=== PATIENT | male | born 1950 | race Caucasian/White ===

== ENCOUNTER → 2022-03-08 14:52 | Outpatient (CLI) | payer MEDICARE, OTHER, SELFPAY ==
--- NOTE | 2022-03-08 14:54 | DI.MRI.S_ITS ---
PROCEDURE: MR LUMBAR SPINE WO CON INDICATIONS: low back pain with radicular symptoms TECHNIQUE: Noncontrast sagittal T1 spin echo and T2 fast echo, sagittal STIR, and T2 fast spin echo through the lumbar spine. In cases with scoliosis, additional coronal T2 fast spin echo may be performed. COMPARISON: [facility], MR, L-SPINE WITHOUT CONTRAST, 11/27/2011, 12:29. FINDINGS: Image quality: Excellent. Alignment and Curvature: Degenerative retrolisthesis of L5 on S1 measuring 6 mm. Bone Marrow: Marrow is of normal overall signal. No acute vertebral body compression fractures. Spinal Cord: Conus medullaris terminates at the L1 level. Visualized cord demonstrates normal signal and size. Paraspinous Soft Tissues: No paravertebral masses. T12-L1: No canal stenosis or foraminal stenosis. L1-L2: Bilateral facet hypertrophy. Mild right foraminal stenosis. Moderate left foraminal stenosis with flattening deformity on the exiting left L1 nerve root. L2-L3: Disc bulge. Facet hypertrophy. Moderate canal stenosis. Mild bilateral foraminal stenosis. L3-L4: Disc bulge. Short pedicles. Prominent bilateral facet and ligament hypertrophy. Severe canal stenosis. Psyd-on-bbhvkiie bilateral foraminal stenosis. L4-L5: Disc bulge. Short pedicles. Marked facet hypertrophy. Marked canal stenosis. Moderate bilateral foraminal narrowing with flattening deformity on the exiting bilateral L4 nerve roots. L5-S1: Retrolisthesis of L5 on S1. Facet hypertrophy. Mild canal stenosis. Moderate bilateral foraminal narrowing with flattening deformity on the exiting bilateral L5 nerve roots. IMPRESSION: 1. Patient has underlying short pedicles and multilevel facet hypertrophy. 2. Canal stenosis is moderate at L2-L3, severe at L3-L4, marked at L4-L5, and mild at L5-S1. 3. Multilevel foraminal narrowing as described above. Dictated by: Juan Carlos Landry M.D. on 03/08/2022 at 17:02 Approved by: Juan Carlos Landry M.D. on 03/08/2022 at 17:06
== END ==
PROVIDERS: PCP Family Medicine; Referring Provider Family Medicine; Visit Provider Family Medicine
DX: M48.061 Spinal stenosis, lumbar region without neurogenic claudication (principal); M54.16 Radiculopathy, lumbar region; M54.50 Low back pain, unspecified; M21.371 Foot drop, right foot; G89.29 Other chronic pain
CPT/HCPCS: 72148

== ENCOUNTER → 2022-03-15 09:21 | Outpatient (CLI) | payer MEDICARE, OTHER, SELFPAY ==
[2022-03-15 20:53] LABS: BUN Creatinine Ratio 18.8 (6-22); Blood Urea Nitrogen 18 mg/dL (9-20); Calcium 9.2 mg/dL (8.4-10.2); Carbon Dioxide 29 mmol/L (22-32); Chloride 100 mmol/L (98-107); Cholesterol 244 mg/dL (140-199); Estimated Glomerular Filt Rate > 60 mL/min (>60); Glucose 91 mg/dL (80-110); HDL Cholesterol 32 mg/dL (40-60); HEMOLYSIS 22 (0-50); LDL Cholesterol Calculated 169 mg/dL (<100); Potassium 4.4 mmol/L (3.4-5.1); Sodium 138 mmol/L (137-145); Triglycerides 214 mg/dL (35-150)
== END ==
PROVIDERS: PCP Family Medicine; Visit Provider Family Medicine
DX: Z13.1 Encounter for screening for diabetes mellitus (principal); Z13.220 Encounter for screening for lipoid disorders; Z79.1 Long term (current) use of non-steroidal anti-inflammatories (NSAID)
CPT/HCPCS: 80048; 80061

== ENCOUNTER → 2022-04-21 13:34 | Outpatient (CLI) | payer MEDICARE, OTHER, SELFPAY | PROVIDERS: PCP Family Medicine; Visit Provider Physician Assistant | DX: L08.9 Local infection of the skin and subcutaneous tissue, unspecified (principal) | CPT/HCPCS: 87070; 87205 ==

== ENCOUNTER → 2022-05-29 12:59 | Outpatient (CLI) | payer MEDICARE, OTHER, SELFPAY ==
[2022-05-29 20:35] LABS: Cholesterol 135 mg/dL (140-199); HDL Cholesterol 41 mg/dL (40-60); LDL Cholesterol Calculated 82 mg/dL (<100); Triglycerides 59 mg/dL (35-150)
== END ==
PROVIDERS: PCP Family Medicine; Visit Provider Family Medicine
DX: E78.2 Mixed hyperlipidemia (principal)
CPT/HCPCS: 80061

== ENCOUNTER → 2022-05-30 12:51 | Outpatient (CLI) | payer MEDICARE, OTHER, SELFPAY ==
--- NOTE | 2022-05-30 12:54 | DI.RAD.S_ITS ---
PROCEDURE: XR LUMBAR SPINE MIN 4V INDICATIONS: LOW BACK PAIN TECHNIQUE: 5 views of the lumbar spine were acquired, including bilateral oblique views. COMPARISON: [facility], MR, MR LUMBAR SPINE WO CON, 03/08/2022, 15:09. FINDINGS: Bones: 5 nonrib-bearing vertebrae are present. There is trace retrolisthesis of L2 on L3, L3 on L4. There is severe disc and foraminal narrowing most notable at L4-5 and L5-S1, moderate L1-2, L2-3 and L3-4.. Small scattered anterior osteophytes are present most notable at L1 and L3. No vertebral body compression fractures. No suspicious bony lesions. Soft tissues: Overlying bowel gas pattern is normal. No suspicious soft tissue calcifications. Oblique images: No pars defects. IMPRESSION: Multilevel disc and foraminal narrowing most severe at L5-S1. Dictated by: Sheeba Hammonds M.D. on 05/30/2022 at 16:24 Approved by: Sheeba Hammonds M.D. on 05/30/2022 at 16:25
== END ==
PROVIDERS: PCP Family Medicine; Referring Provider Anesthesiology; Visit Provider Anesthesiology
DX: M47.26 Other spondylosis with radiculopathy, lumbar region (principal); M48.07 Spinal stenosis, lumbosacral region; M48.061 Spinal stenosis, lumbar region without neurogenic claudication
CPT/HCPCS: 72110; 99214

== ENCOUNTER 2022-06-08 15:11 | Outpatient (CLI) | payer MEDICARE, OTHER, SELFPAY ==
--- NOTE | 2022-06-08 15:15 | DI.RAD.S_ITS ---
PROCEDURE: PAIN L/S FACET INJ/BLK 1ST SANTA COMPARISON: [facility], CR, XR LUMBAR SPINE MIN 4V, 05/30/2022, 14:01. [facility], MR, MR LUMBAR SPINE WO CON, 03/08/2022, 15:09. INDICATIONS: SPINAL STENOSIS FINDINGS: Fluoroscopic spot filming was performed to verify placement of spinal needles on both sides at the L3, L4, and L5 levels, as labeled on the films. Appropriate location of the needle tips was confirmed by injection of iodinated contrast. IMPRESSION: Intraprocedural examination demonstrating appropriate positions of the needles. Dictated by: Damien Cantu M.D. on 06/08/2022 at 15:23 Approved by: Damien Cantu M.D. on 06/08/2022 at 15:23
[2022-06-08 15:20] VITALS: BP 168/77; PULSE 71; RESP 16; TEMP 36.7; O2SAT 100
[2022-06-08 15:33] VITALS: BP 153/76; PULSE 69; RESP 12; O2SAT 98
[2022-06-08] MEDS: IOPAMIDOL 15 ML VIAL 3 ML INJ (15:35)
[2022-06-08] MEDS: BUPIVACAINE 0.5% MDV 5 ML SUBCUT (15:36)
[2022-06-08 15:38] VITALS: BP 139/73; PULSE 73; RESP 15; O2SAT 98
[2022-06-08 15:43] VITALS: BP 137/80; PULSE 75; RESP 20; O2SAT 97
[2022-06-08 15:50] VITALS: BP 158/67; PULSE 66; RESP 18; O2SAT 100
--- NOTE | 2022-06-08 15:58 | P.PCN_ITS ---
Date/Time/Diagnoses Date of procedure: 06/08/22 Time of procedure: 15:30 Procedure Notes Physician: Austyn Jefferson Total Fluoroscopy time (seconds): 20 Total sedation minutes: 0 Procedure in detail & Post-procedure care: Bilateral L3,4,5 Lumbar Medial Branch Blocks Indications: Rito is referred by Dr. Weeks for treatment of lumbar spondylosis with low back pain. Preoperative diagnosis: Bilateral lumbar spondylosis Postoperative diagnosis: Same Pre-procedure History: Patient demonstrates today moderate to severe non- radicular back pain without neurologic deficit aggravated by hyperextension yes Back pain greater than leg pain? yes Patient today has tenderness over the suspected joint(s) yes History of post-traumatic injury? no Hypertrophic arthropathy yes Back pain associated with suspected motion segment instability, hypermobility or pseudoarthrosis no Pre-testing pain score (VAS): 4/10 Focused Examination: Ax3 Mood and affect are normal Vital Signs: VSS Consent: Following review of allergies and potential side effects/complications, including, but not necessarily limited to, infection, allergic reaction, local tissue breakdown, stroke, temporary or permanent nerve injury, paralysis, and possible , the patient indicated that they understood and agreed to proceed.? An informed consent document was signed by the patient, witnessed by a nurse and placed in the patient's chart.? Additionally, other treatment options including medications and physical therapy were reviewed with the patient. All questions were answered. Site was then marked. Anesthesia: Local Position: Prone Monitoring: NIBP, Pulse oximetry, 3 lead EKG Needle used: 22G 3.5 inch spinal needle Contrast: Isovue 300M Injectate: 0.5% Bupivacaine 1 mL per site Procedure: The patient was brought into the procedure room and positioned into the prone position. Skin was prepped with a Chloraprep solution, allowed to air dry, and then draped in sterile fashion.? The right L3,4,5 DR facet joints were visually identified with fluoroscopy. Lidocaine 1% was used to anesthetize the skin over each target destination with a 25ga needle. A 22 ga, 3.5 inch spinal needle was advanced to the location of the medial branch at the junction of the superior articular process and the transverse process using intermittent fluoroscopy in the oblique view. Isovue 300M contrast 0.2ml was injected at each level outlining the medial borders for each level and the base of the SAP of the sacrum in the AP and lateral views. There was no evidence of vascular or intrathecal uptake. The above injectate was slowly injected at each target destination. The above procedure was then repeated for the left L3,4,5 DR facet joints. At the end of the procedure the needles were withdrawn and Band-Aids were applied for a dressing. Post Procedure: Patient was taken to the recovery and monitored. The patient was provided a Pain Log to continue to record the patient's response to the target- specific procedure prior to the patient's follow-up visit with the referring physician. Patient was stable upon discharge. Detailed post procedure instructions were provided. Patient was asked to call in the event of worsening pain, fever, weakness, numbness or bladder or bowel incontinence. Postoperatively, today patient demonstrates the following changes with hyperextension and with tenderness over the suspected joint(s). Provacative testing using the Bernal's facet loading test Right side Left side Directly before the block ?VAS (0-10) = 4/10 VAS (0-10) = 4/10 5 minutes after the block VAS (0-10) = 0/10 VAS (0-10) = 0/10 Percentage relief obtained with this diagnostic block 100% 100% Any improved physical functioning directly after the blocks? ROM, Walking Based on the medial branches blocked today, if the patient meets insurance criteria for radiofrequency, the treatment should result in the denervation of the L4-5 and L5-S1 facet joint nerves. We would expect to denervate a total of 4 facets during the radiofrequency ablation.
== END 2022-06-08 15:57 | disposition home or self-care (01) ==
LOC: RAD 15:12
PROVIDERS: PCP Family Medicine; Referring Provider Anesthesiology; Visit Provider Anesthesiology
DX: M47.816 Spondylosis without myelopathy or radiculopathy, lumbar region (principal)
CPT/HCPCS: 64493; 64494

== ENCOUNTER 2022-08-08 12:24 | Outpatient (CLI) | payer MEDICARE, OTHER, SELFPAY ==
--- NOTE | 2022-08-08 12:25 | DI.RAD.S_ITS ---
PROCEDURE: PAIN L/S FACET INJ/BLK 1ST SANTA COMPARISON: [facility], , PAIN L/S FACET INJ/BLK 1ST SANTA, 06/08/2022, 16:33. INDICATIONS: SPONDYLOSIS FINDINGS: Low resolution intraoperative spot films were obtained during bilateral medial branch blocks at L4, L5 and S1 IMPRESSION: Fluoroscopic guidance Approved by: Sandro Vazquez M.D. on 08/08/2022 at 16:41
[2022-08-08 12:35] VITALS: BP 133/80; PULSE 58; RESP 20; TEMP 36.4; O2SAT 98
[2022-08-08 12:55] VITALS: BP 149/76; PULSE 67; RESP 16; O2SAT 97
[2022-08-08] MEDS: LIDOCAINE 2% INJ SDV 5ML 5 ML INJ (12:58)
[2022-08-08] MEDS: IOPAMIDOL 15 ML VIAL 3 ML INJ (12:58)
[2022-08-08 13:00] VITALS: BP 146/72; PULSE 66; RESP 16; O2SAT 97
[2022-08-08 13:05] VITALS: BP 138/71; PULSE 69; RESP 16; O2SAT 97
[2022-08-08 13:10] VITALS: BP 155/68; PULSE 64; RESP 18; O2SAT 99
--- NOTE | 2022-08-08 14:50 | P.PCN_ITS ---
Date/Time/Diagnoses Date of procedure: 08/08/22 Time of procedure: 13:00 Procedure Notes Physician: Austyn Jefferson Total Fluoroscopy time (seconds): 13 Total sedation minutes: 0 Procedure in detail & Post-procedure care: Bilateral Lumbar Medial Branch Blocks Indications: Rito presents for treatment of lumbar spondylosis with low back p ain. Preoperative diagnosis: Bilateral lumbar spondylosis Postoperative diagnosis: Same Pre-procedure History: Patient demonstrates today moderate to severe non- radicular back pain without neurologic deficit aggravated by hyperextension yes Back pain greater than leg pain? yes Patient today has tenderness over the suspected joint(s) yes History of post-traumatic injury? no Hypertrophic arthropathy yes Back pain associated with suspected motion segment instability, hypermobility or pseudoarthrosis no Pre-testing pain score (VAS): 6/10 Focused Examination: Ax3 Mood and affect are normal Vital Signs: VSS ASA: 2 Consent: Following review of allergies and potential side effects/complications, including, but not necessarily limited to, infection, allergic reaction, local tissue breakdown, stroke, temporary or permanent nerve injury, paralysis, and possible , the patient indicated that they understood and agreed to proceed.? An informed consent document was signed by the patient, witnessed by a nurse and placed in the patient's chart.? Additionally, other treatment options including medications and physical therapy were reviewed with the patient. All questions were answered. Site was then marked. Anesthesia: Local Position: Prone Monitoring: NIBP, Pulse oximetry, 3 lead EKG Needle used: 25G 3.5 inch spinal needle Contrast: Isovue 300M Injectate: 2% lidocaine 1 mL per site Procedure: The patient was brought into the procedure room and positioned into the prone position. Skin was prepped with a Chloraprep solution, allowed to air dry, and then draped in sterile fashion.? The right L4-5 and L5-S1 facet joints were visually identified with fluoroscopy. Lidocaine 1% was used to anesthetize the skin over each target destination with a 25ga needle. A 25 ga, 3.5 inch spinal needle was advanced to the location of the medial branch at the junction of the superior articular process and the transverse process at L3,4,5 using intermittent fluoroscopy in the AP view. Isovue 300M contrast 0.2ml was injected at each level outlining the medial borders for each level and the base of the SAP of the sacrum in the AP and lateral views. There was no evidence of vascular or intrathecal uptake. The above injectate was slowly injected at each target destination. The left L4-5 and L5-S1 facet joints were visually identified with fluoroscopy. Lidocaine 1% was used to anesthetize the skin over each target destination with a 25ga needle. A 22 ga, 3.5 inch spinal needle was advanced to the location of the medial branch at the junction of the superior articular process and the transverse process at L3,4,5 using intermittent fluoroscopy in the AP view. Isovue 300M contrast 0.2ml was injected at each level outlining the medial borders for each level and the base of the SAP of the sacrum in the AP and lateral views. There was no evidence of vascular or intrathecal uptake. The above injectate was slowly injected at each target destination. At the end of the procedure the needles were withdrawn and Band-Aids were applied for a dressing. At the end of the procedure the needles were withdrawn and Band-Aids were applied for a dressing. Post Procedure: Patient was taken to the recovery and monitored. The patient was provided a Pain Log to continue to record the patient's response to the target- specific procedure prior to the patient's follow-up visit with the referring physician. Patient was stable upon discharge. Detailed post procedure instructions were provided. Patient was asked to call in the event of worsening pain, fever, weakness, numbness or bladder or bowel incontinence. Postoperatively, today patient demonstrates the following changes with hyperextension and with tenderness over the suspected joint(s). Provacative testing using the Bernal's facet loading test Right side Left side Directly before the block ?VAS (0-10) = 6/10 VAS (0-10) = 6/10 5 minutes after the block VAS (0-10) = 2/10 VAS (0-10) = 2/10 Percentage relief obtained with this diagnostic block 67 % 67 % Any improved physical functioning directly after the blocks? Range of motion Based on the medial branches blocked today, if the patient meets insurance criteria for radiofrequency, the treatment should result in the denervation of the bilateral L4-5 and L5-S1 facet joint nerves. We would expect to denervate a total of 4 facets during the radiofrequency ablation.
== END 2022-08-08 13:20 | disposition home or self-care (01) ==
LOC: RAD 12:25
PROVIDERS: PCP Family Medicine; Referring Provider Anesthesiology; Visit Provider Anesthesiology
DX: M47.816 Spondylosis without myelopathy or radiculopathy, lumbar region (principal)
CPT/HCPCS: 64493; 64494

== ENCOUNTER 2022-09-13 15:35 | Outpatient (CLI) | payer MEDICARE, OTHER, SELFPAY ==
[2022-09-13] VITALS (12 sets, daily range): BP systolic 152–190; BP diastolic 81–96; PULSE 65–78; RESP 14–23; TEMP 36.1; O2SAT 97–99
--- NOTE | 2022-09-13 15:36 | DI.RAD.S_ITS ---
PROCEDURE: PAIN L/S MED/LAT N RFA BILAT INDICATIONS: SPONDYLOSIS COMPARISON: None. FINDINGS: Fluoroscopic spot filming was performed to verify placement of spinal needles at the bilateral L3, L4, and L5 level(s), as labeled on the films. Appropriate location(s) of the needle tip(s) was confirmed by injection of iodinated contrast. IMPRESSION: Fluoroscopy used for needle localization at the aforementioned levels. Dictated by: Nell Paredes M.D. on 09/13/2022 at 17:33 Approved by: Nell Paredes M.D. on 09/13/2022 at 17:34
[2022-09-13] MEDS: DEXAMETHASONE 10 MG/ML VIAL 20 MG INJ (15:57)
[2022-09-13] MEDS: LIDOCAINE 2% INJ MDV 20ML 20 ML INJ (15:57)
[2022-09-13] MEDS: BUPIVACAINE 0.5% (PF) 10 ML VIAL 5 ML INJ (15:58)
--- NOTE | 2022-09-13 16:47 | P.PCN_ITS ---
Date/Time/Diagnoses Date of procedure: 09/13/22 Time of procedure: 15:30 Procedure Notes Physician: Austyn Jefferson Total Fluoroscopy time (seconds): 17 Total sedation minutes: 0 Procedure in detail & Post-procedure care: Bilateral L3, 4, 5 Lumbar Medial Branch Radio Frequency Ablation Indications: Rito presents for treatment of lumbar spondylosis with low back pain. Preoperative diagnosis: Bilateral lumbar spondylosis Postoperative diagnosis: Same Pre-procedure History: Patient demonstrates today moderate to severe non-radicular low back pain without neurologic deficit aggravated by hyperextension yes Back pain greater than leg pain? yes Patient today has tenderness over the suspected joint(s) yes History of post-traumatic injury? no Hypertrophic arthropathy yes Back pain associated with suspected motion segment instability, hypermobility or pseudoarthrosis no Focused Examination: Ax3 Mood and affect are normal Vital Signs: VSS Consent: Following review of allergies and potential side effects/complications, including, but not necessarily limited to, infection, allergic reaction, local tissue breakdown, stroke, temporary or permanent nerve injury, paralysis, and possible , the patient indicated that they understood and agreed to proceed.? An informed consent document was signed by the patient, witnessed by a nurse and placed in the patient's chart.? Additionally, other treatment options including medications and physical therapy were reviewed with the patient. All questions were answered. Site was then marked. Position: Prone Monitoring: NIBP, Pulse oximetry, 3 lead EKG Needle used: 18 guage, 100 mm, 10 mm active tip Anesthesia: Local Procedure: The patient was brought into the procedure room and positioned into the prone position. Skin was prepped with a Chloraprep solution, allowed to air dry, and then draped in sterile fashion.? The right L4-5 and L5-S1 facet joints were visually identified with fluoroscopy. Lidocaine 1% was used to anesthetize the skin over each target destination with a 25ga needle. An 18 ga, 100 mm RFA needle with a 10 mm active tip was advanced to the location of the medial branch at the junction of the superior articular process and the transverse process at L4,5 using intermittent fluoroscopy in the oblique view with caudal tilt. AP and lateral radiographs were taken to confirm proper needle placement. No paresthesias were noted. The stylet was removed and the radiofrequency probe was inserted through the cannula. Each level was individually tested. The impedance was between 300 and 800 ohms at all levels.? Motor stimulation up to 2V elicited multifidus twitching in the lumbar spine. There was no motor stimulation in the lower extremities. After negative aspiration, 1ml of 2% lidocaine was injected at each of the levels and radiofrequency denervation carried out using 80 degrees Celsius for 90 seconds. The needles were then rotated 90 degrees and a second ablation was performed at 80 degrees Celsius for 90 seconds. After ablation, a mixture of 10 mg dexamethasone with 0.25% bupivacaine 5 mL was injected in equal amounts among the sites (1 mL per site). Next, the left L4-5 and L5-S1 facet joints were visually identified with fluoroscopy. Lidocaine 1% was used to anesthetize the skin over each target d estination with a 25ga needle. An 18 ga, 100 mm RFA needle with a 10 mm active tip was advanced to the location of the medial branch at the junction of the superior articular process and the transverse process at L4,5 using intermittent fluoroscopy in the oblique view with caudal tilt. AP and lateral radiographs were taken to confirm proper needle placement. No paresthesias were noted. The stylet was removed and the radiofrequency probe was inserted through the cannula. Each level was individually tested. The impedance was between 300 and 800 ohms at all levels.? Motor stimulation up to 2V elicited multifidus twitching in the lumbar spine. There was no motor stimulation in the lower extremities. After negative aspiration, 1ml of 2% lidocaine was injected at each of the levels and radiofrequency denervation carried out using 80 degrees Celsius for 90 seconds. The needles were then rotated 90 degrees and a second ablation was performed at 80 degrees Celsius for 90 seconds. After ablation, a mixture of 10 mg dexamethasone with 0.25% bupivacaine 5 mL was injected in equal amounts among the sites (1 mL per site). At the end of the procedure the needles were withdrawn and Band-Aids were applied for a dressing. This procedure is expected to denervate the bilateral L4-5 and L5-S1 facet joints. Post Procedure: Patient was taken to the recovery and monitored. The patient was provided a Pain Log to continue to record the patient's response to the target- specific procedure prior to the patient's follow-up visit with the referring physician. Patient was stable upon discharge. Detailed post procedure instructions were provided. Patient was asked to call in the event of worsening pain, fever, weakness, numbness or bladder or bowel incontinence. Complications: None
== END 2022-09-13 16:45 | disposition home or self-care (01) ==
PROVIDERS: PCP Family Medicine; Referring Provider Anesthesiology; Visit Provider Anesthesiology
DX: M47.816 Spondylosis without myelopathy or radiculopathy, lumbar region (principal)
CPT/HCPCS: 64635; 64636; J1100

== ENCOUNTER 2023-01-03 15:21 | Outpatient (CLI) | payer MEDICARE, OTHER, SELFPAY ==
--- NOTE | 2023-01-03 15:24 | DI.RAD.S_ITS ---
PROCEDURE: PAIN L INTERLAMINAR/CAUDAL INJ INDICATIONS: RADICULOPATHY COMPARISON: [facility], XA, PAIN L/S MED/LAT N RFA BILAT, 09/13/2022, 15:57. FINDINGS: Fluoroscopic spot filming was performed to verify placement of a spinal needle at the L4-L5 level, as labeled on the films. Appropriate location of the needle tip was confirmed by injection of iodinated contrast. IMPRESSION: Intraprocedural examination within normal limits. Dictated by: Damien Cantu M.D. on 01/03/2023 at 17:41 Approved by: Damien Cantu M.D. on 01/03/2023 at 17:42
[2023-01-03 15:30] VITALS: BP 160/77; PULSE 66; RESP 15; TEMP 36.4; O2SAT 99
[2023-01-03 16:00] VITALS: BP 181/83; PULSE 69; RESP 14; O2SAT 99
[2023-01-03] MEDS: IOPAMIDOL 15 ML VIAL 3 ML INJ (16:02)
[2023-01-03] MEDS: DEXAMETHASONE 10 MG/ML VIAL INJ (16:02)
[2023-01-03 16:05] VITALS: BP 165/86; PULSE 68; RESP 7; O2SAT 100
[2023-01-03 16:08] VITALS: BP 146/79; PULSE 66; RESP 8; O2SAT 99
[2023-01-03 16:10] VITALS: BP 156/74; PULSE 73; RESP 15; O2SAT 99
--- NOTE | 2023-01-03 16:24 | P.PCN_ITS ---
Date/Time/Diagnoses Date of procedure: 01/03/23 Time of procedure: 16:00 Procedure Notes Physician: Austyn Jefferson Total Fluoroscopy time (seconds): 15 Total sedation minutes: 0 Procedure in detail & Post-procedure care: L4-5 Interlaminar Epidural Steroid Injection Indications: Petar is presenting for treatment of lumbar radiculopathy with low back and leg pain. Preoperative diagnosis: Lumbar radiculopathy Postoperative diagnosis: Same Focused Examination: Ax3 Mood and affect are normal Vital Signs: VSS Consent: Following review of allergies and potential side effects/complications, including, but not necessarily limited to, infection, allergic reaction, local tissue breakdown, stroke, temporary or permanent nerve injury, paralysis, and possible , the patient indicated that they understood and agreed to proceed.? An informed consent document was signed by the patient, witnessed by a nurse and placed in the patient's chart.? Additionally, other treatment options including medications and physical therapy were reviewed with the patient. All questions were answered. Site was then marked. Anesthesia: Local Position: Prone Monitoring: NIBP, Pulse oximetry, 3 lead EKG Needle used: 18 G 3.5? Tuohy Contrast: Isovue 300M Injectate: Dexamethasone 10 mg with 1% lidocaine 2 mL Technique: The skin was prepped with chloraprep and then draped in a sterile fashion. Time out was performed as per protocol. Oxygen applied via NC. Skin and subcutaneous structures of the needle entry site was then infiltrated with 3 mL of lidocaine 1%. Under AP, lateral and contralateral oblique fluoroscopic control, the Tuohy needle was guided into the L4-5 epidural space. The space was accessed with loss of resistance technique. Isovue 300M was then injected and the spread was consistent with the epidural space. There was no evidence for intravascular or intrathecal uptake. After negative aspiration, the above- mentioned injectate was then slowly administered and the needle withdrawn. The patient expressed no unusual discomfort or paresthesias during the injection. Band-Aids applied to injection sites. EBL: less than 1 ml Complications: None Post Procedure: Patient was taken to the recovery and monitored. The patient was provided a Pain Log to continue to record the patient's response to the target- specific procedure prior to the patient's follow-up visit with the referring physician. Patient was stable upon discharge. Detailed post procedure instructions were provided. Patient was asked to call in the event of worsening pain, fever, weakness, numbness or bladder or bowel incontinence.
== END 2023-01-03 16:20 | disposition home or self-care (01) ==
PROVIDERS: PCP Family Medicine; Referring Provider Anesthesiology; Visit Provider Anesthesiology
DX: M54.16 Radiculopathy, lumbar region (principal)
CPT/HCPCS: 62323; J1100

== ENCOUNTER → 2023-05-03 11:32 | Outpatient (CLI) | payer MEDICARE, OTHER, SELFPAY ==
--- NOTE | 2023-05-03 11:34 | DI.MRI.S_ITS ---
PROCEDURE: MR LUMBAR SPINE WO CON INDICATIONS: LUMBAR RADICULOPATHY TECHNIQUE: Noncontrast sagittal T1 spin echo and T2 fast echo, sagittal STIR, and T2 fast spin echo through the lumbar spine. In cases with scoliosis, additional coronal T2 fast spin echo may be performed. COMPARISON: [facility], MR, MR LUMBAR SPINE WO CON, 03/08/2022, 15:09. FINDINGS: Image quality: Diagnostic. Alignment and Curvature: Stable bony alignment with mild grade 1 retrolisthesis of L5 on S1 secondary to degenerative changes. This measures approximately 5-6 mm. Bone Marrow: Marrow is of normal overall signal. No acute vertebral body compression fractures. Redemonstration of congenital short pedicles. Spinal Cord: Conus medullaris terminates at the L1 level. Visualized cord demonstrates normal signal and size. Paraspinous Soft Tissues: No paravertebral masses. T12-L1: No significant neuroforaminal or spinal canal stenosis. L1-L2: Moderate bilateral facet arthropathy. Ligamentum flavum hypertrophy. Small symmetric disc bulge. No significant spinal canal stenosis. Moderate-severe left and moderate right bilateral neuroforaminal stenosis. L2-L3: Degenerative endplate changes. Mild disc space loss. Disc desiccation. Moderate symmetric disc bulge. Moderate bilateral facet arthropathy. Ligamentum flavum hypertrophy. Moderate spinal canal stenosis. Mild bilateral neuroforaminal stenosis. L3-L4: Disc desiccation. Degenerative endplate changes. Moderate symmetric disc bulge. Moderate bilateral facet arthropathy. Ligamentum flavum hypertrophy. Severe spinal canal stenosis. Moderate bilateral neuroforaminal stenosis. L4-L5: Degenerative endplate changes. Disc space loss. Moderate-severe bilateral facet arthropathy. Ligamentum flavum hypertrophy. Slightly eccentric to the right diffuse disc bulge. Moderate left and moderate-severe right bilateral neuroforaminal stenosis. Severe spinal canal stenosis. L5-S1: Degenerative endplate changes. Disc height loss. Disc desiccation. Moderate bilateral facet arthropathy. Diffuse disc bulge. Moderate bilateral neuroforaminal stenosis. Mild spinal canal stenosis. IMPRESSION: 1. No acute abnormalities identified in the lumbar spine. 2. Mild interval progression of multilevel, multifactorial lumbar spondylosis as detailed above by vertebral body level. Findings are most severe at L3-4 and L4-5. Dictated by: Ted Bravo M.D. on 05/03/2023 at 16:51 Approved by: Ted Bravo M.D. on 05/03/2023 at 17:01
[2023-05-03 14:10] LABS: Add Manual Diff / Slide Review NO; Basophils Absolute Auto 100 /uL (0-100); Basophils Percent Auto 0.9 % (0-2); Eosinophils Absolute Auto 100 /uL (0-450); Eosinophils Percent Auto 1.8 % (2-4); Hematocrit 43.6 % (41-53); Hemoglobin 15.1 g/dL (13.5-17.5); Lymphocytes Absolute Auto 1800 /uL (1100-4500); Lymphocytes Percent Auto 24.9 % (25-40); Mean Corpuscular HGB Conc 34.6 % (30-36); Mean Corpuscular Hemoglobin 31.1 PG (26-34); Mean Corpuscular Volume 89.9 fL (80-100); Monocytes Absolute Auto 500 /uL (0-900); Monocytes Percent Auto 7.4 % (3-14); Neutrophils Absolute Auto 4700 /uL (1500-7000); Platelet Count 181 X10^3/uL (150-400); Red Blood Cell Count 4.85 X10^6/uL (4.5-5.9); White Blood Cell Count 7.2 X10^3/uL (4.5-11.0)
[2023-05-03 14:21] LABS: Prothrombin Time 11.3 SECONDS (9.4-12.5)
[2023-05-03 14:25] LABS: PTT Partial Thromboplastin Tim 28 SECONDS (25.1-36.5)
[2023-05-03 14:27] LABS: Hemoglobin A1C% w Est Avg Glu 5.6 % (4.0-6.0)
[2023-05-03 14:28] LABS: BUN Creatinine Ratio 18.4 (6-22); Blood Urea Nitrogen 16 mg/dL (9-20); Calcium 9.7 mg/dL (8.4-10.2); Carbon Dioxide 28 mmol/L (22-32); Chloride 105 mmol/L (98-107); Estimated Glomerular Filt Rate > 60 mL/min (>60); Glucose 96 mg/dL (80-110); HEMOLYSIS < 15 (0-50); Potassium 4.3 mmol/L (3.4-5.1); Sodium 140 mmol/L (137-145)
== END ==
PROVIDERS: PCP Family Medicine; Referring Provider Orthopaedic Surgery; Visit Provider Orthopaedic Surgery
DX: M51.16 Intervertebral disc disorders with radiculopathy, lumbar region (principal); Z01.818 Encounter for other preprocedural examination; M48.062 Spinal stenosis, lumbar region with neurogenic claudication; M47.26 Other spondylosis with radiculopathy, lumbar region
CPT/HCPCS: 36415; 72148; 80048; 83036; 85025; 85610; 85730; 93005

== ENCOUNTER → 2023-05-10 11:36 | Outpatient (CLI) | payer MEDICARE, OTHER, SELFPAY | PROVIDERS: PCP Family Medicine; Visit Provider Family Medicine | DX: Z01.818 Encounter for other preprocedural examination (principal) | CPT/HCPCS: 87070 ==

== ENCOUNTER → 2023-08-02 10:44 | Outpatient (CLI) | payer MEDICARE, OTHER, SELFPAY ==
[2023-08-07 10:14] LABS: Fecal Immunochemical Test Negative (Negative)
== END ==
PROVIDERS: PCP Family Medicine; Referring Provider Family Medicine; Visit Provider Family Medicine
DX: Z12.11 Encounter for screening for malignant neoplasm of colon (principal)
CPT/HCPCS: 82274

== ENCOUNTER → 2023-08-30 11:50 | Outpatient (CLI) | payer MEDICARE, OTHER, SELFPAY ==
[2023-08-30 20:07] LABS: Add Manual Diff / Slide Review NO; Basophils Absolute Auto 0 /uL (0-100); Basophils Percent Auto 0.3 % (0-2); Eosinophils Absolute Auto 200 /uL (0-450); Eosinophils Percent Auto 2.2 % (2-4); Hematocrit 42.9 % (41-53); Hemoglobin 14.5 g/dL (13.5-17.5); Lymphocytes Absolute Auto 1600 /uL (1100-4500); Lymphocytes Percent Auto 23.3 % (25-40); Mean Corpuscular HGB Conc 33.9 % (30-36); Mean Corpuscular Hemoglobin 30.5 PG (26-34); Mean Corpuscular Volume 90.1 fL (80-100); Monocytes Absolute Auto 500 /uL (0-900); Monocytes Percent Auto 6.7 % (3-14); Neutrophils Absolute Auto 4700 /uL (1500-7000); Neutrophils Percent Auto 67.5 % (50-75); Platelet Count 171 X10^3/uL (150-400); Red Blood Cell Count 4.76 X10^6/uL (4.5-5.9)
[2023-08-30 20:18] LABS: BUN Creatinine Ratio 17.2 (6-22); Blood Urea Nitrogen 16 mg/dL (9-20); Calcium 9.2 mg/dL (8.4-10.2); Carbon Dioxide 30 mmol/L (22-32); Chloride 104 mmol/L (98-107); Cholesterol 132 mg/dL (140-199); Estimated Glomerular Filt Rate > 60 mL/min (>60); Glucose 91 mg/dL (80-110); HDL Cholesterol 42 mg/dL (40-60); HEMOLYSIS < 15 (0-50); LDL Cholesterol Calculated 73 mg/dL (<100); Potassium 4.5 mmol/L (3.4-5.1); Sodium 138 mmol/L (137-145); Triglycerides 84 mg/dL (35-150)
[2023-08-30 20:49] LABS: Prostate Specific Antigen Scrn 1.46 ng/mL (0.1-4.0)
== END ==
PROVIDERS: PCP Family Medicine; Visit Provider Family Medicine
DX: Z12.5 Encounter for screening for malignant neoplasm of prostate (principal); E78.2 Mixed hyperlipidemia; M54.16 Radiculopathy, lumbar region; Z79.1 Long term (current) use of non-steroidal anti-inflammatories (NSAID)
CPT/HCPCS: 80048; 80061; 85025; G0103

== ENCOUNTER → 2024-05-15 14:58 | Outpatient (CLI) | payer MEDICARE, OTHER, SELFPAY ==
--- NOTE | 2024-05-15 15:34 | DI.MRI.S_ITS ---
PROCEDURE: MR LUMBAR SPINE WO CON INDICATIONS: LUMBAR RADICULOPATHY TECHNIQUE: Noncontrast sagittal T1 spin echo and T2 fast echo, sagittal STIR, and T2 fast spin echo through the lumbar spine. In cases with scoliosis, additional coronal T2 fast spin echo may be performed. COMPARISON: [facility], MR, MR LUMBAR SPINE WO CON, 05/03/2023, 11:43. FINDINGS: Image quality: Excellent. Alignment and Curvature: There is normal bony alignment. Bone Marrow: L3-4 and L4-5 laminotomy. No instrumentation. Spinal Cord: Conus medullaris terminates at the L1 level. Visualized cord demonstrates normal signal and size. Paraspinous Soft Tissues: No paravertebral masses. T12-L1: Normal appearance. L1-L2: No central or foraminal stenosis L2-L3: Mild disc bulge and arthropathy. Mild central stenosis. Mild bilateral foraminal stenosis L3-L4: Disc bulge and arthropathy. Right hemilaminotomy. Mild persistent stenosis is much improved. Moderate bilateral foraminal stenosis has increased. L4-L5: Disc bulge and arthropathy. Right hemilaminotomy. Moderate persistent central stenosis is slightly improved from the prior exam. Mild bilateral foraminal stenosis L5-S1: Disc bulge and arthropathy. No central stenosis. Moderate bilateral foraminal stenosis. IMPRESSION: Auto text multilevel Multilevel degenerative disc disease and arthropathy results in varying degrees of central and foraminal stenosis including moderate persistent central stenosis L4-5 nevertheless improved from the prior. Approved by: Sandro Vazquez M.D. on 05/15/2024 at 18:00
== END ==
PROVIDERS: PCP Family Medicine; Referring Provider Orthopaedic Surgery; Visit Provider Orthopaedic Surgery
DX: M51.16 Intervertebral disc disorders with radiculopathy, lumbar region (principal); M51.17 Intervertebral disc disorders with radiculopathy, lumbosacral region; M47.26 Other spondylosis with radiculopathy, lumbar region; M47.27 Other spondylosis with radiculopathy, lumbosacral region; M48.061 Spinal stenosis, lumbar region without neurogenic claudication; M48.07 Spinal stenosis, lumbosacral region
CPT/HCPCS: 72148

== ENCOUNTER → 2024-07-31 11:00 | Outpatient (CLI) | payer MEDICARE, OTHER, SELFPAY ==
[2024-08-04 12:08] LABS: Fecal Immunochemical Test Negative (Negative)
== END ==
PROVIDERS: PCP Family Medicine; Visit Provider Family Medicine
DX: Z12.11 Encounter for screening for malignant neoplasm of colon (principal)
CPT/HCPCS: 82274

== ENCOUNTER → 2024-10-20 10:19 | Outpatient (CLI) | payer MEDICARE, OTHER, SELFPAY ==
[2024-10-20 20:27] LABS: Blood Urea Nitrogen 19 mg/dL (9-20); Calcium 9.4 mg/dL (8.4-10.2); Carbon Dioxide 27 mmol/L (22-32); Chloride 103 mmol/L (98-107); Cholesterol 137 mg/dL (140-199); Estimated Glomerular Filt Rate > 60 mL/min (>60); Glucose 100 mg/dL (70-99); HDL Cholesterol 44 mg/dL (40-60); HEMOLYSIS 16 (0-50); LDL Cholesterol Calculated 77 mg/dL (<100); Sodium 139 mmol/L (137-145); Triglycerides 81 mg/dL (35-150)
[2024-10-20 20:31] LABS: Add Manual Diff / Slide Review NO; Basophils Absolute Auto 100 /uL (0-100); Basophils Percent Auto 1.2 % (0-2); Eosinophils Absolute Auto 300 /uL (0-450); Eosinophils Percent Auto 4.4 % (2-4); Hematocrit 46.6 % (41-53); Hemoglobin 15.7 g/dL (13.5-17.5); Lymphocytes Absolute Auto 1400 /uL (1100-4500); Lymphocytes Percent Auto 21.3 % (25-40); Mean Corpuscular HGB Conc 33.6 % (30-36); Mean Corpuscular Hemoglobin 30.8 PG (26-34); Mean Corpuscular Volume 91.5 fL (80-100); Monocytes Absolute Auto 500 /uL (0-900); Monocytes Percent Auto 8.3 % (3-14); Neutrophils Absolute Auto 4200 /uL (1500-7000); Neutrophils Percent Auto 64.8 % (50-75); Platelet Count 187 X10^3/uL (150-400); Red Cell Distribution Width 13.5 % (11.6-14.8); White Blood Cell Count 6.4 X10^3/uL (4.5-11.0)
== END ==
PROVIDERS: PCP Family Medicine; Visit Provider Family Medicine
DX: E78.2 Mixed hyperlipidemia (principal); Z12.5 Encounter for screening for malignant neoplasm of prostate; Z79.1 Long term (current) use of non-steroidal anti-inflammatories (NSAID); I10 Essential (primary) hypertension
CPT/HCPCS: 80048; 80061; 85025; G0103